=== PATIENT | male | born 1985 | race Caucasian/White ===

== ENCOUNTER 2021-02-25 19:19 | Inpatient (IN) | payer OTHER, SELFPAY ==
--- NOTE | ~2021-02-25 | XR_ITS ---
EXAMINATION: XR ABDOMEN KUB CLINICAL INDICATION: Abdominal pain COMPARISON: None TECHNIQUE: AP view of the abdomen and pelvis. FINDINGS: The bowel gas pattern is normal without evidence of ileus or obstruction. The bones are unremarkable. At least a 4 tiny calcifications are noted arranged in a vertical chain, in the left mid to lower pelvis, which may represent phleboliths however possibility of ureteric calculus/calculi cannot be excluded. A tiny calcification is noted in the right lower pelvis. The visualized lung bases are unremarkable. XR/XR KUB IMPRESSION: No evidence of radiopaque renal calculi. A few tiny calcifications in the pelvis bilaterally, greater in number on the left compared to right may represent phleboliths however possibility of bariatric calculus/calculi cannot be completely excluded. Recommend clinical correlation and correlation with the urinalysis. If clinically deemed necessary CT stone study would be helpful for evaluation of the urinary tract calculi.
[2021-02-25 20:18] VITALS: BMI 25.4
[2021-02-25 20:56] VITALS: BP 103/72; PULSE 72; RESP 16; TEMP 36.5; O2SAT 98
--- NOTE | 2021-02-25 22:26 | PC.ADMIT ---
Pt is a 35 year old male who came to [facility] from [facility] ED presenting symptoms of psychosis with delusions, paranoia, AH/VH. Pt's mom called police when he told her that evil forces were coming to harm her. At arrival to [facility] pt had a BAL of 248. He disclosed that he has occasional cocaine use and daily marijuana use. No previous history of inpatient and no ALESSIA treatment. Pt on admission to was sedated and nodding in and out during questions. Received Haldol 5 mg and Ativan 2 mg PO before coming onto the unit. C/o chest pain related to I had a pizza crust stuck in my chest...and now I take Prilosec. Mentioned that he took Vraylar 20 mg previously. Pharmacy was closed to verify [facility] in [place], [place]. Calm, cooperative on the unit verbalized that he has no thoughts of harming himself or anyone. I just want to catch up on my sleep, I haven't been sleeping well. Per eval pt is living in a yurt in the [facility]. Denies AH/VH and substance use. Placed on 15 minute checks. CV signed.
[2021-02-26 07:00] VITALS: BP 108/69; PULSE 85; RESP 18; TEMP 36.5; O2SAT 97
[2021-02-26 08:12] LABS: MANUAL DIFF FLAG NO
[2021-02-26 08:16] LABS: Basophils Absolute Auto 0.1 X10*3/uL (0.0-0.2); Basophils Percent Auto 0.8 % (0-2); Eosinophils Absolute Auto 0.2 X10*3/uL (0.0-0.4); Eosinophils Percent Auto 3.1 % (0-4); Hematocrit 42.9 % (42-52); Hemoglobin 14.7 g/dl (14.0-18.0); Imm Gran Abs Auto 0.01 X10*3/uL (0.00-0.03); Imm Gran Pct Auto 0.1 % (0.0-0.4); Lymphocytes Absolute Auto 2.3 X10*3/uL (1.2-4.9); Lymphocytes Percent Auto 30.7 % (20-40); Mean Corpuscular HGB Conc 34.3 g/dl (31.0-36.0); Mean Corpuscular Volume 93.5 fL (80-98); Mean Platelet Volume 10.3 fL (9.4-12.4); Monocytes Absolute Auto 0.7 X10*3/uL (0.1-1.2); Monocytes Percent Auto 9.7 % (2-11); Neutrophils Absolute Auto 4.1 X10*3/uL (2.0-8.3); Neutrophils Percent Auto 55.6 % (45-73); Platelet Count 247 X10*3/uL (160-400); Red Blood Count 4.59 X10*6/uL (4.60-5.80); Red Cell Distribution Width 12.7 % (11.0-16.0); White Blood Count 7.4 X10*3/uL (4.8-10.8)
[2021-02-26 08:46] LABS: Alanine Aminotransferase 16 U/L (0-40); Albumin Level 4.3 g/dL (3.5-5.0); Alkaline Phosphatase 61 U/L (39-117); Anion Gap 12 (12-20); Aspartate Amino Transferase 16 U/L (5-37); Bilirubin Direct 0.2 mg/dL (0.0-0.5); Bilirubin Total 0.5 mg/dL (0.0-1.0); Blood Urea Nitrogen 15 mg/dL (9-16); Calcium 9.4 mg/dL (8.4-10.2); Carbon Dioxide 23 mmol/L (22-29); Chloride 108 mmol/L (96-108); Creatinine Clr Calc Pharmacy 97.2; Estimated Glomerular Filt Rate > 60; Glucose Fasting 95 mg/dL (60-99); Potassium 4.6 mmol/L (3.3-5.1); Sodium 138 mmol/L (135-145); Total Protein 6.3 g/dL (6.5-8.0)
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
[2021-02-26] MEDS: LORazepam 0.5 MG TABLET PO (11:57)
--- NOTE | 2021-02-26 12:02 | PC.NURSE ---
PT COMPLETED A 3 DAY NOTICE TODAY AND IT WILL BE UP ON Wednesday03/04/21
[2021-02-26] MEDS: Cariprazine HCl 1.5 MG CAPSULE PO (12:42)
--- NOTE | 2021-02-26 13:14 | PC.NURSE ---
PT PACING IN THE HALLWAYS, APPEARS TENSE AND GUARDED. WHEN PT WAS ASKED WHAT BROUGHT HIM IN HE RESPONDED SAYING, I HEARD THE THE POISH ANNA WAS LOOKING FOR ME AND I HEARD IT FROM THE VIDEO INTERN . PT WAS ASKED ABOUT VOICES AND HE STARED AT T/W AND SAID, DON'T YOU BELIEVE IN TELEPATHY, ITS MORE LIKE THAT , DON'T YOU BELIEVE. PT THEN BEGAN TALKING ABOUT ABIRIGIONS AND WALK A BOUTS . (LARGE NUMBER OF PEOPLE WALKING IN [place] TALKING TO GROUPS OF PEOPLE SOMEWHERE ELSE AND COMMUNICATING). PT HAD MUCH DIFFICULTY CONCENTRATING AND WAS PERPETRATING ON THE ANNA AND PEOPLE AFTER HIM.
[2021-02-26 17:40] VITALS: BP 116/66; PULSE 82; RESP 18; TEMP 36.7; O2SAT 96
[2021-02-27 06:00] VITALS: BP 112/76; PULSE 90; RESP 16; TEMP 36.4; O2SAT 98
[2021-02-27] MEDS: Cariprazine HCl 1.5 MG CAPSULE PO ×2 (09:00→16:45)
--- NOTE | 2021-02-27 09:12 | P.PNPSI_ITS ---
Subjective Subjective Date of Service: 02/27/21 Reason For Visit: Acute psychosis Interim History: Patient reports he feels a little better since getting back on Vraylar. He remains concerned about the neighbors at his apartment and reiterates concerns about the [place] [employer]afia, and over hearing people passing by in their cars making accusatory comments (global technical writer previously thought pt was in his car, hearing pedestrians). He says what if this is really true? I mean what if this is really true? [place] we do something? That said he also wants the Vraylar to help tone down the part of his mind that are exaggerating these voices. He asks however if increasing the Vraylar would make him more vulnerable as in he would be less able to hear [auditory hallucinations] voices and be unaware of threats, however patient accepted that the medication would help him be more in touch with reality, what was real versus not and agreed to increase to 3 mg. Of note, patient reports he has not really heard AH since admission and has only heard the word ?outlaw ?1 time. The patient reports that he seems to have worsening auditory hallucinations during the times that he goes without sleep which most recently, was this past week. He says AH are still around even when not in the hypomanic state but to a much lesser degree (of note, patient does not consider these to be hallucinations and global technical writer is paraphrasing). . Patient is concerned about court date for pandemic unemployment assistance. casino gaming worker helped him arrange for access to court hearing tomorrow while on the unit. 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 Patient has already delayed this court date once so that he can have more time to collect the documents however he has not done so up until his admission. He has no transportation and no plan for getting documents and If he were to leave today he not be able to collect them Mental Status Exam Mental Status Exam Narrative: Pt is alert and oriented; behavior is cooperative, friendly; patient dressed in casual attire with adequate hygiene; mood is described as good and affect congruent; eye contact appropriate; Speech is normal rate, volume and prosody and not pressured; no psychomotor agitation/retardation present; thought process is organized, linear, logical and goal directed. Thought content is delusional threat posed to his brother by neighbors; also on court date on 02/28; content is pertinent to relevant topics but includes paranoid and delusional ideations; denies any SI/HI. AH have diminished. Patients insight and judgment are impaired. However, while he does not think he has delusions or hallucinations he agrees that sometimes the mind can exaggerate things and it can be difficult to distinguish between the two the real vs imagined). Diagnostics Vital Signs (24Hr): Vital Signs - 24 hr 02/26/21 17:40 02/27/21 06:00 Temperature 98.1 F 97.6 F Pulse Rate 82 90 Respiratory Rate 18 16 Blood Pressure 116/66 112/76 Pulse Oximetry 96 98 Body Mass Index 25.4 Labs Results: 02/26/21 07:49 02/26/21 07:49 Labs: Laboratory Results - last 48 hr 02/26/21 02/26/21 07:49 07:49 WBC 7.4 RBC 4.59 L Hgb 14.7 Hct 42.9 MCV 93.5 MCH 32.0 MCHC 34.3 RDW 12.7 Plt Count 247 MPV 10.3 Immature Gran % (Auto) 0.1 Neut % (Auto) 55.6 Lymph % (Auto) 30.7 [place] % (Auto) 9.7 Eos % (Auto) 3.1 Baso % (Auto) 0.8 Lymph # (Auto) 2.3 [place] # (Auto) 0.7 Eos # (Auto) 0.2 Baso # (Auto) 0.1 Abs Immat Gran (auto) 0.01 Absolute Neuts (auto) 4.1 Absolute Nucleated RBC 0.000 Nucleated RBC % (auto) 0.0 Sodium 138 Potassium 4.6 Chloride 108 Carbon Dioxide 23 Anion Gap 12 BUN 15 Creatinine 1.05 Estim Creat Clear Calc 97.2 Estimated GFR > 60 Fasting Glucose 95 Calcium 9.4 Total Bilirubin 0.5 Direct Bilirubin 0.2 AST 16 ALT 16 Alkaline Phosphatase 61 Total Protein 6.3 L Albumin 4.3 Medications Medications Current Medications Generic Name Dose Route Start Last Admin Trade Name Freq PRN Reason Stop Dose Admin Acetaminophen 650 mg 02/25/21 20:59 Acetaminophen 325 Mg Tablet PO Q6H PRN Headache/Pain Mild Scale (1-3) Al Hydroxide/Mg Hydroxide 30 ml 02/25/21 20:59 Magnesium Hydrox/Alum Hydrox 30 Ml Oral.Susp PO Q6H PRN Heartburn/Nausea Cariprazine 1.5 mg 02/26/21 11:34 02/27/21 09:00 Cariprazine Hcl 1.5 Mg Capsule PO 1.5 mg DAILY SANDIP Administration Diphenhydramine HCl 50 mg 02/25/21 20:59 Diphenhydramine Hcl 25 Mg Tablet PO Q4H PRN agitation Haloperidol 5 mg 02/25/21 20:59 Haloperidol 5 Mg Tablet PO Q4H PRN agitation Hydroxyzine HCl 25 mg 02/25/21 20:59 Hydroxyzine Hcl 25 Mg Tablet PO TID PRN Anxiety Lorazepam 2 mg 02/25/21 20:59 Lorazepam 1 Mg Tablet PO Q4H PRN agitation Magnesium Hydroxide 30 ml 02/25/21 20:59 Milk Of Magnesia 30 Ml Oral.Susp PO DAILY PRN Constipation Nicotine 21 mg 02/25/21 20:59 Nicotine 21 Mg Patch.Td24 TRANSDERMA DAILY PRN smoking cessation Nicotine Polacrilex 4 mg 02/25/21 20:59 Nicotine Polacrilex 2 Mg Gum BUCCAL Q2H PRN Nicotine Cravings Trazodone HCl 50 mg 02/25/21 20:59 Trazodone Hcl 50 Mg Tablet PO BEDTIME PRN Insomnia Allergies Allergies Allergy/AdvReac Type Severity Reaction Status Date / Time aspirin Allergy unsure Unverified 02/25/21 20:38 Assessment & Plan Assessment & Plan (1) Schizoaffective disorder, bipolar type: Status: Acute Code(s): F25.0 - Schizoaffective disorder, bipolar type (2) PTSD (post-traumatic stress disorder): Status: Acute Code(s): F43.10 - Post-traumatic stress disorder, unspecified Assessment and Plan: IMPRESSION: Patient is a 35-year-old male with history of psychotic symptoms presents to the ED after his mother called 911 and the face of patient expressing paranoid delusional thinking. Patient reports history of auditory hallucinations with brief periods hypomanic states. Patient meets criteria for schizoaffective disorder bipolar type however will make this diagnosis provisional since right of his meeting patient for the 1st time and there are some clarifications needed in his history. Patient reports history being on both lithium and Depakote making bipolar disorder a rule out. Patient endorses PTSD symptoms, but does not want to talk about trauma, some of which occurred during incarceration. He smokes cannabis regularly, but seems to report that it lowers his psychotic symptoms; otherwise he denies substance abuse. Patient denies any history of SI or HI. Although he lacks insight, thinking his paranoid delusions and AH are based in reality he would like antipsychotic medication because he feels it he lps him be more calm and less anxious. Patient signed a CV but then immediately signed a 3 day notice and is worried about missing a court date to receive [employer] funds. Patient refused release of information to talk with his mother and brother at this time Admitting DX: Schizoaffective disorder, bipolar type, provisional diagnosis Rule out bipolar disorder; r/o schizophrenia PTSD, chronic Current treatment decisions: Restarted patient on Vraylar 1.5 mg. Pt agreed to increase to 3mg and to move to nighttime incase it makes him tired. PLAN: PATIENT SIGNED CV PATIENT THEN SIGNED 3 DAY NOTICE Increased Vraylar 3 mg Will seek collateral from Maranda Davis, patient's prescriber Greater than 50% of the session was spent on counseling and/or coordination of care Reason for contiued inpatient stay Substantial Risk for: med/psych decompensation
[2021-02-27] MEDS: hydrOXYzine HCL 50 MG TABLET PO (10:38)
[2021-02-27 16:47] VITALS: BP 124/83; PULSE 87; TEMP 36.9
[2021-02-28 06:00] VITALS: BP 121/84; PULSE 79; RESP 16; TEMP 36.6; O2SAT 98
--- NOTE | 2021-02-28 09:07 | P.PNPSI_ITS ---
Subjective Subjective Date of Service: 02/28/21 Reason For Visit: Acute psychosis Subjective Notes: 3 Day Interim History: pt feeling better; denies any AH but remains concerned about paranoid delusions that his brother is in danger at his apartment. Pt however does continue to agree that perhaps his mind is exaggerating what he thinks he overheard (neighbors plotting to harm his brother) and agrees to increase Vryalar to 3mg. He signed a 3 day notice but says over the weekend, he'll consider staying longer. Patient said court went well enough today and that he has more time to collect paperwork. He feels relieved. Medication Compliance: Yes Side effects from medications: No Attending Groups: No Mental Status Exam Mental Status Exam Narrative: Pt is alert and oriented; behavior is cooperative, friendly and calm; patient is not in distress; dressed in casual attire wearing t-shirt and pants with adequate hygiene; mood is described as good and affect congruent; eye contact appropriate; Speech is normal rate, volume and prosody and not pressured; no psychomotor agitation/retardation present; thought process is organized, linear, logical and goal directed. Thought content is on continuing treatment and court issues; otherwise, pertinent to relevant topics; still delusional and paranoid ideations; denies any SI/HI. There is no evidence of perceptual disturbance and patient denies any AH since admission. Patients insight and judgment appears impaired. Diagnostics Vital Signs (24Hr): Vital Signs - 24 hr 02/27/21 16:47 02/28/21 06:00 Temperature 98.4 F 97.8 F Pulse Rate 87 79 Respiratory Rate 16 Blood Pressure 124/83 121/84 Pulse Oximetry 98 Body Mass Index 25.4 Labs Results: 02/26/21 07:49 03/02/21 16:01 Medications Medications Current Medications Generic Name Dose Route Start Last Admin Trade Name Freq PRN Reason Stop Dose Admin Acetaminophen 650 mg 02/25/21 20:59 Acetaminophen 325 Mg Tablet PO Q6H PRN Headache/Pain Mild Scale (1-3) Al Hydroxide/Mg Hydroxide 30 ml 02/25/21 20:59 Magnesium Hydrox/Alum Hydrox 30 Ml Oral.Susp PO Q6H PRN Heartburn/Nausea Cariprazine 3 mg 02/28/21 21:00 Cariprazine Hcl 3 Mg Capsule PO BEDTIME SANDIP Diphenhydramine HCl 50 mg 02/25/21 20:59 Diphenhydramine Hcl 25 Mg Tablet PO Q4H PRN agitation Haloperidol 5 mg 02/25/21 20:59 Haloperidol 5 Mg Tablet PO Q4H PRN agitation Hydroxyzine HCl 25 mg 02/25/21 20:59 Hydroxyzine Hcl 25 Mg Tablet PO TID PRN Anxiety Hydroxyzine HCl 50 mg 02/27/21 10:30 02/27/21 10:38 Hydroxyzine Hcl 50 Mg Tablet PO 50 mg Q6H PRN Administration Anxiety Lorazepam 2 mg 02/25/21 20:59 Lorazepam 1 Mg Tablet PO Q4H PRN agitation Magnesium Hydroxide 30 ml 02/25/21 20:59 Milk Of Magnesia 30 Ml Oral.Susp PO DAILY PRN Constipation Nicotine 21 mg 02/25/21 20:59 Nicotine 21 Mg Patch.Td24 TRANSDERMA DAILY PRN smoking cessation Nicotine Polacrilex 4 mg 02/25/21 20:59 Nicotine Polacrilex 2 Mg Gum BUCCAL Q2H PRN Nicotine Cravings Trazodone HCl 50 mg 02/25/21 20:59 Trazodone Hcl 50 Mg Tablet PO BEDTIME PRN Insomnia Allergies Allergies Allergy/AdvReac Type Severity Reaction Status Date / Time aspirin Allergy unsure Unverified 02/25/21 20:38 Assessment & Plan Assessment & Plan (1) Schizoaffective disorder, bipolar type: Status: Chronic Code(s): F25.0 - Schizoaffective disorder, bipolar type (2) PTSD (post-traumatic stress disorder): Status: Chronic Code(s): F43.10 - Post-traumatic stress disorder, unspecified Assessment and Plan: IMPRESSION: Patient is a 35-year-old male with history of psychotic symptoms presents to the ED after his mother called 911 and the face of patient expressing paranoid delusional thinking. Patient reports history of auditory hallucinations with brief periods hypomanic states. Patient meets criteria for schizoaffective disorder bipolar type however will make this diagnosis provisional since right of his meeting patient for the 1st time and there are some clarifications needed in his history. Patient reports history being on both lithium and Depakote making bipolar disorder a rule out. Patient endorses PTSD symptoms, but does not want to talk about trauma, some of which occurred during incarceration. He smokes cannabis regularly, but seems to report that it lowers his psychotic symptoms; otherwise he denies substance abuse. Patient denies any history of SI or HI. Although he lacks insight, thinking his paranoid delusions and AH are based in reality he would like antipsychotic medication because he feels it helps him be more calm and less anxious. Patient signed a CV but then rachid mcmanusy signed a 3 day notice and is worried about missing a court date to receive [employer] funds. Patient refused release of information to talk with his mother and brother at this time Admitting DX: Schizoaffective disorder, bipolar type, provisional diagnosis Rule out bipolar disorder; r/o schizophrenia PTSD, chronic Current treatment decisions: Restarted patient on Vraylar 1.5 mg. Pt agreed to increase to 3mg and to move to nighttime incase it makes him tired. PLAN: PATIENT SIGNED CV PATIENT THEN SIGNED 3 DAY NOTICE Increased Vraylar 3 mg Will seek collateral from Maranda Davis, patient's prescriber Greater than 50% of the session was spent on counseling and/or coordination of care Reason for contiued inpatient stay Substantial Risk for: rapid decompensation
[2021-02-28 10:00] VITALS: BP 135/75; PULSE 69; TEMP 35.9; O2SAT 97
[2021-02-28 17:30] VITALS: BP 116/83; PULSE 80; TEMP 36.9
[2021-02-28] MEDS: Cariprazine HCl 3 MG CAPSULE PO (20:17)
[2021-03-01 06:00] VITALS: BP 135/75; PULSE 75; RESP 16; TEMP 36.2; O2SAT 97
[2021-03-01] MEDS: Magnesium Hydrox/Alum Hydrox 30 ML ORAL.SUSP PO ×2 (13:21→20:20)
[2021-03-01 19:30] VITALS: BP 136/76; PULSE 75; TEMP 36.4
[2021-03-01] MEDS: Cariprazine HCl 3 MG CAPSULE PO (20:20)
[2021-03-02 05:00] VITALS: BP 143/63; PULSE 75; RESP 18; TEMP 36.4; O2SAT 97
--- NOTE | 2021-03-02 08:25 | P.PNPSI_ITS ---
Subjective Subjective Date of Service: 03/01/21 Reason For Visit: Acute psychosis Interim History: The patient had been psychotic but able to control himself, he took his medications as prescribed, denied side effects. Later, he complained of nausea and vomiting. MOM was increased. Medication Compliance: Yes Side effects from medications: No Attending Groups: Intermittent Mental Status Exam Mental Status Exam Patient Appearance: Unkempt Patient Orientation: Person, Place, Time and Situation Level of Consciousness: Awake Patient Behavior: Cooperative Mood Description: Calm Affect Description: Constricted Patient Cognition Impaired: No Ability to Follow Directions: Good Speech Pattern: Clear Hallucinations: None Thought Process: Goal Oriented Thought Content: positive for Preoccupation Judgement: Fair Diagnostics Vital Signs (24Hr): Vital Signs - 24 hr 03/01/21 19:30 03/02/21 05:00 Temperature 97.5 F 97.6 F Pulse Rate 75 75 Respiratory Rate 18 Blood Pressure 136/76 143/63 H Pulse Oximetry 97 Body Mass Index 25.4 Labs Results: 02/26/21 07:49 02/26/21 07:49 Medications Medications Current Medications Generic Name Dose Route Start Last Admin Trade Name Freq PRN Reason Stop Dose Admin Acetaminophen 650 mg 02/25/21 20:59 Acetaminophen 325 Mg Tablet PO Q6H PRN Headache/Pain Mild Scale (1-3) Al Hydroxide/Mg Hydroxide 30 ml 02/25/21 20:59 03/01/21 20:20 Magnesium Hydrox/Alum Hydrox 30 Ml Oral.Susp PO 30 ml Q6H PRN Administration Heartburn/Nausea Cariprazine 3 mg 02/28/21 21:00 03/01/21 20:20 Cariprazine Hcl 3 Mg Capsule PO 3 mg BEDTIME SANDIP Administration Diphenhydramine HCl 50 mg 02/25/21 20:59 Diphenhydramine Hcl 25 Mg Tablet PO Q4H PRN agitation Haloperidol 5 mg 02/25/21 20:59 Haloperidol 5 Mg Tablet PO Q4H PRN agitation Hydroxyzine HCl 25 mg 02/25/21 20:59 Hydroxyzine Hcl 25 Mg Tablet PO TID PRN Anxiety Hydroxyzine HCl 50 mg 02/27/21 10:30 02/27/21 10:38 Hydroxyzine Hcl 50 Mg Tablet PO 50 mg Q6H PRN Administration Anxiety Lorazepam 2 mg 02/25/21 20:59 Lorazepam 1 Mg Tablet PO Q4H PRN agitation Magnesium Hydroxide 30 ml 03/01/21 13:10 Milk Of Magnesia 30 Ml Oral.Susp PO TID PRN Dyspepsia Nicotine 21 mg 02/25/21 20:59 Nicotine 21 Mg Patch.Td24 TRANSDERMA DAILY PRN smoking cessation Nicotine Polacrilex 4 mg 02/25/21 20:59 Nicotine Polacrilex 2 Mg Gum BUCCAL Q2H PRN Nicotine Cravings Trazodone HCl 50 mg 02/25/21 20:59 Trazodone Hcl 50 Mg Tablet PO BEDTIME PRN Insomnia Allergies Allergies Allergy/AdvReac Type Severity Reaction Status Date / Time aspirin Allergy unsure Unverified 02/25/21 20:38 Assessment & Plan Assessment & Plan (1) Schizoaffective disorder, bipolar type: Status: Acute Code(s): F25.0 - Schizoaffective disorder, bipolar type (2) PTSD (post-traumatic stress disorder): Status: Acute Code(s): F43.10 - Post-traumatic stress disorder, unspecified Assessment and Plan: IMPRESSION: Patient is a 35-year-old male with history of psychotic symptoms presents to the ED after his mother called 911 and the face of patient expressing paranoid delusional thinking. Patient reports history of auditory hallucinations with brief periods hypomanic states. Patient meets criteria for schizoaffective disorder bipolar type however will make this diagnosis provisional since right of his meeting patient for the 1st time and there are some clarifications needed in his history. Patient reports history being on both lithium and Depakote making bipolar disorder a rule out. Patient endorses PTSD symptoms, but does no t want to talk about trauma, some of which occurred during incarceration. He smokes cannabis regularly, but seems to report that it lowers his psychotic symptoms; otherwise he denies substance abuse. Patient denies any history of SI or HI. Although he lacks insight, thinking his paranoid delusions and AH are based in reality he would like antipsychotic medication because he feels it helps him be more calm and less anxious. Patient signed a CV but then immediately signed a 3 day notice and is worried about missing a court date to receive [employer] unemployment funds. Patient refused release of information to talk with his mother and brother at this time Admitting DX: Schizoaffective disorder, bipolar type, provisional diagnosis Rule out bipolar disorder; r/o schizophrenia PTSD, chronic Current treatment decisions: Restarted patient on Vraylar 1.5 mg. Pt agreed to increase to 3mg and to move to nighttime incase it makes him tired. PLAN: PATIENT SIGNED CV PATIENT THEN SIGNED 3 DAY NOTICE Increased Vraylar 3 mg Will seek collateral from Maranda Davis, patient's prescriber Greater than 50% of the session was spent on counseling and/or coordination of care Reason for contiued inpatient stay Substantial Risk for: inability to function, rapid decompensation and med/psych decompensation
--- NOTE | 2021-03-02 08:27 | HO.PSYCHPN ---
Subjective Subjective Date of Service: 03/02/21 Reason For Visit: Acute psychosis Interim History: The patient had nausea again, it seems that he has this problem for several months. He was seen in the unit, isolative but compliant with treatment. He denied AH at this moment Medication Compliance: Yes Side effects from medications: No Attending Groups: No Mental Status Exam Mental Status Exam Patient Appearance: Well Grooomed Patient Orientation: Person, Place, Time and Situation Level of Consciousness: Awake and Appropriate Patient Behavior: Cooperative Mood Description: Calm Affect Description: Constricted Patient Cognition Impaired: No Ability to Follow Directions: Good Speech Pattern: Clear Hallucinations: None Delusions: Not Present Thought Process: Goal Oriented Thought Content: positive for Circumstantial Judgement: Fair Diagnostics Vital Signs (24Hr): Vital Signs - 24 hr 03/01/21 19:30 03/02/21 05:00 Temperature 97.5 F 97.6 F Pulse Rate 75 75 Respiratory Rate 18 Blood Pressure 136/76 143/63 H Pulse Oximetry 97 Body Mass Index 25.4 Labs Results: 02/26/21 07:49 02/26/21 07:49 Medications Medications Current Medications Generic Name Dose Route Start Last Admin Trade Name Freq PRN Reason Stop Dose Admin Acetaminophen 650 mg 02/25/21 20:59 Acetaminophen 325 Mg Tablet PO Q6H PRN Headache/Pain Mild Scale (1-3) Al Hydroxide/Mg Hydroxide 30 ml 02/25/21 20:59 03/01/21 20:20 Magnesium Hydrox/Alum Hydrox 30 Ml Oral.Susp PO 30 ml Q6H PRN Administration Heartburn/Nausea Cariprazine 3 mg 02/28/21 21:00 03/01/21 20:20 Cariprazine Hcl 3 Mg Capsule PO 3 mg BEDTIME SANDIP Administration Diphenhydramine HCl 50 mg 02/25/21 20:59 Diphenhydramine Hcl 25 Mg Tablet PO Q4H PRN agitation Haloperidol 5 mg 02/25/21 20:59 Haloperidol 5 Mg Tablet PO Q4H PRN agitation Hydroxyzine HCl 25 mg 02/25/21 20:59 Hydroxyzine Hcl 25 Mg Tablet PO TID PRN Anxiety Hydroxyzine HCl 50 mg 02/27/21 10:30 02/27/21 10:38 Hydroxyzine Hcl 50 Mg Tablet PO 50 mg Q6H PRN Administration Anxiety Lorazepam 2 mg 02/25/21 20:59 Lorazepam 1 Mg Tablet PO Q4H PRN agitation Magnesium Hydroxide 30 ml 03/01/21 13:10 Milk Of Magnesia 30 Ml Oral.Susp PO TID PRN Dyspepsia Nicotine 21 mg 02/25/21 20:59 Nicotine 21 Mg Patch.Td24 TRANSDERMA DAILY PRN smoking cessation Nicotine Polacrilex 4 mg 02/25/21 20:59 Nicotine Polacrilex 2 Mg Gum BUCCAL Q2H PRN Nicotine Cravings Trazodone HCl 50 mg 02/25/21 20:59 Trazodone Hcl 50 Mg Tablet PO BEDTIME PRN Insomnia Allergies Allergies Allergy/AdvReac Type Severity Reaction Status Date / Time aspirin Allergy unsure Unverified 02/25/21 20:38 Assessment & Plan Assessment & Plan (1) Schizoaffective disorder, bipolar type: Status: Acute Code(s): F25.0 - Schizoaffective disorder, bipolar type (2) PTSD (post-traumatic stress disorder): Status: Acute Code(s): F43.10 - Post-traumatic stress disorder, unspecified Assessment and Plan: Adult male with a history of psychosis and mood lability, admitted after his mother called emergency services due to decompensation. Currently, compliant with the treatment. Plan: Keep Vraylar 3 mg Greater than 50% of the session was spent on counseling and/or coordination of care Reason for contiued inpatient stay Substantial Risk for: inability to function, rapid decompensation and med/psych decompensation
[2021-03-02] MEDS: Milk of Magnesia 30 ML ORAL.SUSP PO (09:18)
--- NOTE | 2021-03-02 15:00 | PM.IMCN ---
History of Present Illness Data of Consult Service Date: 03/02/21 Requesting physician: Huey Tijerina Primary Care Provider: Unknown Physician HPI Reason for consult: Abdominal pain 35 year old man admitted to for psychiatric care. He reports abdominal pain, nausea and vomiting that has been ongoing over the last 6 months. Has had episodes where he changes psychotropic medication and develops nausea and vomiting and also episodes where he is trying to have a bowel movement and develops nausea and vomiting. He reported a diffuse abdominal pain prior to vomiting. He reported a good appetite, and is highly active outside as he is homeless living in a tent. He smokes marijuana on a regular basis. he was recently restarted on a psychotropic medication which can also cause nausea and vomiting and he reported that he was diagnosed with GERD as a child and took a PPI for a short time but stopped. He reported right upper quadrant pain with palpation but during the exam did not elicit pain response when palpated. No fever noted. Labs pending. Review of Systems Review of Systems: Denies any recent fever chills or decrease in appetite respiratory denies chest pain cardiovascular is adjustment of any PND or edema gastrointestinal see HPI genitourinary denies any dysuria frequency or hematuria musculoskeletal denies any joint pain or swelling neuropsych denies any weakness or seizures all other systems reviewed are negative [facility] Medical History (Updated 03/02/21 @ 15:01 by Kerrie Fragoso NP) GERD (gastroesophageal reflux disease) PTSD (post-traumatic stress disorder) Schizoaffective disorder, bipolar type Social History Household Members: Unknown / Unable to assess Housing: Unknown / Unable to assess Do you presently have visiting nurse or other home services: No Unable to assess alcohol history related to: Unable to respond Cigarette Packs Per Day: 1 Cigarettes Per Day: 20.0 Years Smoked: 7 Smoked in Last 30 Days: Yes Patient Interested in Nicotine Replacement: No Patient Given Instructions on How to Stop Smoking: Yes Date Education Initiated: 02/25/21 Second Hand Smoke Exposure: Yes Use of substances other than those prescribed or required for medical reasons: Refusing to respond Currently Displaying Signs/Symptoms of Drug Intoxication Withdrawal: No Other Past Substance Use Problem:: per eval pt occasional cocaine use , daily marijuana Advance Directives: No Advance Directives Information Provided: No Do you have thoughts of harming others: None Do you have a plan to hurt others: No Plan Recently lost weight without trying: Unsure Nutrition Risks: No Nutritional Risk Poor oral hygiene: No service: No Sexual orientation: Straight/Heterosexual Meds Allergies Allergy/AdvReac Type Severity Reaction Status Date / Time aspirin Allergy unsure Unverified 02/25/21 20:38 Active Medications: Current Medications Generic Name Dose Route Start Last Admin Trade Name Freq PRN Reason Stop Dose Admin Acetaminophen 650 mg 02/25/21 20:59 Acetaminophen 325 Mg Tablet PO Q6H PRN Headache/Pain Mild Scale (1-3) Al Hydroxide/Mg Hydroxide 30 ml 02/25/21 20:59 03/01/21 20:20 Magnesium Hydrox/Alum Hydrox 30 Ml Oral.Susp PO 30 ml Q6H PRN Administration Heartburn/Nausea Cariprazine 3 mg 02/28/21 21:00 03/01/21 20:20 Cariprazine Hcl 3 Mg Capsule PO 3 mg BEDTIME SANDIP Administration Diphenhydramine HCl 50 mg 02/25/21 20:59 Diphenhydramine Hcl 25 Mg Tablet PO Q4H PRN agitation Haloperidol 5 mg 02/25/21 20:59 Haloperidol 5 Mg Tablet PO Q4H PRN agitation Hydroxyzine HCl 25 mg 02/25/21 20:59 Hydroxyzine Hcl 25 Mg Tablet PO TID PRN Anxiety Hydroxyzine HCl 50 mg 02/27/21 10:30 02/27/21 10:38 Hydroxyzine Hcl 50 Mg Tablet PO 50 mg Q6H PRN Administration Anxiety Lorazepam 2 mg 02/25/21 20:59 Lorazepam 1 Mg Tablet PO Q4H PRN agitation Magnesium Hydroxide 30 ml 03/01/21 13:10 03/02/21 09:18 Milk Of Magnesia 30 Ml Oral.Susp PO 30 ml TID PRN Administration Dyspepsia Nicotine 21 mg 02/25/21 20:59 Nicotine 21 Mg Patch.Td24 TRANSDERMA DAILY PRN smoking cessation Nicotine Polacrilex 4 mg 02/25/21 20:59 Nicotine Polacrilex 2 Mg Gum BUCCAL Q2H PRN Nicotine Cravings Ondansetron HCl 8 mg 03/02/21 10:21 Ondansetron Odt 8 Mg Tab.Rapdis TRANSLINGU Q8H PRN Nausea Trazodone HCl 50 mg 02/25/21 20:59 Trazodone Hcl 50 Mg Tablet PO BEDTIME PRN Insomnia Physical Exam Vital Signs and Narrative: Vital Signs: Last Vital Signs Temp 97.6 F 03/02/21 05:00 Pulse 75 03/02/21 05:00 Resp 18 03/02/21 05:00 BP 143/63 H 03/02/21 05:00 Pulse Ox 97 03/02/21 05:00 Body Mass Index 25.4 Appearing in no acute distress head is normocephalic atraumatic eyes pupils are PERRLA sclera is anicteric mouth throat mucous membranes are intact and moist neck is supple no lymphadenopathy, no JVD noted lung sounds are clear to auscultation heart regular rate rhythm, clear S1, S2 positive bowel sounds, abdomen is soft, nontender neuro patient is alert x3, no focal deficits Results Labs CBC and Chem 7: 02/26/21 07:49 02/26/21 07:49 Assessment and Plan (1) PTSD (post-traumatic stress disorder): Status: Acute (2) Schizoaffective disorder, bipolar type: Status: Acute 35 year old man admitted to with complaints of abdominal pain that has been ongoing for at least 6 months. Multiple differentials including medication related, marijuana cyclical vomiting, GERD/gastritis, constipation Abdominal pain. Wide differential. No acute symptoms during interview -Add PPI -Continue SL zofran -BMP, LFT, Lactid acid -KUB -GI consult, may need scope at some point Psychiatric -as per psych team
[2021-03-02 16:28] LABS: Lactic Acid 1.1 mmol/L (0.5-2.0)
[2021-03-02 16:32] LABS: Alanine Aminotransferase 17 U/L (0-40); Albumin Level 4.7 g/dL (3.5-5.0); Alkaline Phosphatase 63 U/L (39-117); Aspartate Amino Transferase 16 U/L (5-37); Bilirubin Direct < 0.2 mg/dL (0.0-0.5); Bilirubin Total 0.5 mg/dL (0.0-1.0); Total Protein 6.8 g/dL (6.5-8.0)
[2021-03-02 16:40] VITALS: BP 121/77; PULSE 64; TEMP 36.5
[2021-03-02 16:48] LABS: Anion Gap 13 (12-20); Blood Urea Nitrogen 13 mg/dL (9-16); Calcium 9.6 mg/dL (8.4-10.2); Carbon Dioxide 28 mmol/L (22-29); Chloride 104 mmol/L (96-108); Creatinine Clr Calc Pharmacy 107.4; Estimated Glomerular Filt Rate > 60; Glucose Random 93 mg/dL (60-115); Potassium 3.9 mmol/L (3.3-5.1); Sodium 141 mmol/L (135-145)
[2021-03-02] MEDS: Cariprazine HCl 3 MG CAPSULE PO (20:57)
[2021-03-02] MEDS: hydrOXYzine HCL 50 MG TABLET PO (20:58)
[2021-03-03 06:50] VITALS: BP 123/94; PULSE 60; TEMP 36.1
[2021-03-03] MEDS: Omeprazole 20 MG CAPSULE.DR PO (06:54)
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
--- NOTE | 2021-03-03 09:13 | PM.EVENT ---
Event Note Date of Service: 03/03/21 Event Note: Patient declined Abdominal CT scan for work up for CT stone study and phleboliths. Will dc scan. Rest of management as per psychiatric team.
[2021-03-03 10:23] LABS: Glucose Urine UA NEG (NEG); Leukocyte Esterase Urine NEG (NEG); Nitrite Urine NEG (NEG); Urine Blood NEG (NEG); Urine Ketones NEG (NEG); Urine Protein NEG (NEG-TRACE)
[2021-03-03 10:24] LABS: Appearance Urine CLEAR; Color Urine YELLOW
[2021-03-03] MEDS: Milk of Magnesia 30 ML ORAL.SUSP PO (12:16)
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
[2021-03-03] MEDS: Magnesium Citrate 300 ML SOLUTION PO (18:26)
[2021-03-03 19:35] VITALS: BP 128/77; PULSE 95; TEMP 36.3
[2021-03-03] MEDS: hydrOXYzine HCL 50 MG TABLET PO (21:48)
[2021-03-03] MEDS: Cariprazine HCl 3 MG CAPSULE PO (21:48)
[2021-03-04] MEDS: Omeprazole 20 MG CAPSULE.DR PO (06:18)
[2021-03-04 09:24] VITALS: BP 130/91; PULSE 53; RESP 18; TEMP 36.5; O2SAT 100
--- NOTE | 2021-03-04 09:42 | P.PNPSI_ITS ---
Subjective Subjective Date of Service: 03/04/21 Reason For Visit: Acute psychosis Diagnostics Vital Signs (24Hr): Vital Signs - 24 hr 03/03/21 19:35 03/04/21 09:24 Temperature 97.3 F 97.7 F Pulse Rate 95 53 Respiratory Rate 18 Blood Pressure 128/77 130/91 H Pulse Oximetry 100 Body Mass Index 25.4 Labs Results: 02/26/21 07:49 03/02/21 16:01 Labs: Laboratory Results - last 48 hr 03/02/21 03/02/21 03/02/21 16:01 16:01 16:01 Sodium Cancelled 141 Potassium Cancelled 3.9 Chloride Cancelled 104 Carbon Dioxide Cancelled 28 Anion Gap Cancelled 13 BUN Cancelled 13 Creatinine Cancelled 0.95 Estim Creat Clear Calc Cancelled 107.4 Estimated GFR Cancelled > 60 Random Glucose Cancelled 93 Lactic Acid 1.1 Calcium Cancelled 9.6 Total Bilirubin 0.5 Direct Bilirubin < 0.2 AST 16 ALT 17 Alkaline Phosphatase 63 Total Protein 6.8 Albumin 4.7 Urine Color Urine Appearance Urine pH Ur Specific [place] Urine Protein Urine Glucose (UA) Urine Ketones Urine Blood Urine Nitrite Ur Leukocyte Esterase 03/03/21 09:48 Sodium Potassium Chloride Carbon Dioxide Anion Gap BUN Creatinine Estim Creat Clear Calc Estimated GFR Random Glucose Lactic Acid Calcium Total Bilirubin Direct Bilirubin AST ALT Alkaline Phosphatase Total Protein Albumin Urine Color YELLOW Urine Appearance CLEAR Urine pH 7.0 Ur Specific [place] 1.010 Urine Protein NEG Urine Glucose (UA) NEG Urine Ketones NEG Urine Blood NEG Urine Nitrite NEG Ur Leukocyte Esterase NEG Imaging Radiology Impressions: ITS Impressions KUB X-Ray 03/02/21 15:47 IMPRESSION: No evidence of radiopaque renal calculi. A few tiny calcifications in the pelvis bilaterally, greater in number on the left compared to right may represent phleboliths however possibility of bariatric calculus/calculi cannot be completely excluded. Recommend clinical correlation and correlation with the urinalysis. If clinically deemed necessary CT stone study would be helpful for evaluation of the urinary tract calculi. Medications Medications Current Medications Generic Name Dose Route Start Last Admin Trade Name Freq PRN Reason Stop Dose Admin Acetaminophen 650 mg 02/25/21 20:59 Acetaminophen 325 Mg Tablet PO Q6H PRN Headache/Pain Mild Scale (1-3) Al Hydroxide/Mg Hydroxide 30 ml 02/25/21 20:59 03/01/21 20:20 Magnesium Hydrox/Alum Hydrox 30 Ml Oral.Susp PO 30 ml Q6H PRN Administration Heartburn/Nausea Cariprazine 3 mg 02/28/21 21:00 03/03/21 21:48 Cariprazine Hcl 3 Mg Capsule PO 3 mg BEDTIME SANDIP Administration Diphenhydramine HCl 50 mg 02/25/21 20:59 Diphenhydramine Hcl 25 Mg Tablet PO Q4H PRN agitation Docusate Sodium 100 mg 03/03/21 10:19 Docusate Sodium 100 Mg Capsule PO BEDTIME PRN Constipation Docusate Sodium 100 mg 03/03/21 15:59 Docusate Sodium 100 Mg Capsule PO BEDTIME PRN Constipation Haloperidol 5 mg 02/25/21 20:59 Haloperidol 5 Mg Tablet PO Q4H PRN agitation Hydroxyzine HCl 25 mg 02/25/21 20:59 Hydroxyzine Hcl 25 Mg Tablet PO TID PRN Anxiety Hydroxyzine HCl 50 mg 02/27/21 10:30 03/03/21 21:48 Hydroxyzine Hcl 50 Mg Tablet PO 50 mg Q6H PRN Administration Anxiety Magnesium Hydroxide 30 ml 03/01/21 13:10 03/03/21 12:16 Milk Of Magnesia 30 Ml Oral.Susp PO 30 ml TID PRN Administration Dyspepsia Nicotine 21 mg 02/25/21 20:59 Nicotine 21 Mg Patch.Td24 TRANSDERMA DAILY PRN smoking cessation Nicotine Polacrilex 4 mg 02/25/21 20:59 Nicotine Polacrilex 2 Mg Gum BUCCAL Q2H PRN Nicotine Cravings Omeprazole 20 mg 03/03/21 06:30 03/04/21 06:18 Omeprazole 20 Mg Capsule.Dr PO 20 mg DAILY@0630 SANDIP Administration Ondansetron HCl 8 mg 03/02/21 10:21 03/04/21 07:49 Ondansetron Odt 8 Mg Tab.Rapdis TRANSLINGU 8 mg Q8H PRN Administration Nausea Trazodone HCl 50 mg 02/25/21 20:59 Trazodone Hcl 50 Mg Tablet PO BEDTIME PRN Insomnia Allergies Allergies Allergy/AdvReac Type Severity Reaction Status Date / Time aspirin Allergy unsure Unverified 02/25/21 20:38 Assessment & Plan Assessment & Plan (1) PTSD (post-traumatic stress disorder): Status: Acute Code(s): F43.10 - Post-traumatic stress disorder, unspecified (2) Schizoaffective disorder, bipolar type: Status: Acute Code(s): F25.0 - Schizoaffective disorder, bipolar type Assessment and Plan: 35 year old man admitted to [facility] with complaints of abdominal pain that has been ongoing for at least 6 months. Multiple differentials including medication related, marijuana cyclical vomiting, GERD/gastritis, constipation Abdominal pain. Wide differential. No acute symptoms during interview -Add PPI -Continue SL zofran -BMP, LFT, Lactid acid -KUB -GI consult, may need scope at some point Psychiatric -as per psych team, continue with Vraylar. Greater than 50% of the session was spent on counseling and/or coordination of care
--- NOTE | 2021-03-04 12:15 | PM.EVENT ---
Event Note Date of Service: 03/04/21 Event Note: GI Consult full note dictated No abdominal pain today Longstanding history of reflux symptoms Agree with omeprazole 20 mg daily Advise patient to f/u for elective outpatient EGD given symptoms
[2021-03-04] MEDS: Milk of Magnesia 30 ML ORAL.SUSP PO (12:50)
--- NOTE | 2021-03-04 13:07 | P.DS_ITS ---
DS: Providers Provider Date of Service: 03/04/21 Date of admission: 02/25/21 19:19 Date of discharge: 03/04/21 Primary care physician: Unknown Physician Attending physician on admission: Albin Garcia Consults: 03/02/21 15:13 Consult to Gastroenterology Routine Consulting Provider: Andrew Garcia Reason for consultation: abd pain Has provider been notified: No Attending physician on discharge: Albin Garcia DS: Diagnosis Discharge Diagnosis (1) PTSD (post-traumatic stress disorder): Status: Chronic (2) Schizoaffective disorder, bipolar type: Status: Chronic (3) GERD (gastroesophageal reflux disease): Status: Acute DS: Medications Discharge Medications Home Medications: Vrylar 3mg daily omeprazole 20mg daily Discharge Plan Discharge Patient Disposition: Home, Self-Care Discharge Diagnosis: Schizophrenia, paranoid type Referrals: Clara Castillo (therapy intake) [Other] - 03/06/21 4:00 pm (Telehealth appointment, she will call you) Gisela Hart (psychiatrist) [Other] - 03/07/21 2:30 pm (Telehealth appointment, she will call you) Maranda Davis MD [Physician] - 1 Week ( SAID HE CAN COME IN A WALK -IN .) Andrew Garcia [Physician] - 1 Week ('S OFFICE WILL CALL PATIENT WITH F/U APPOINTMENT AFTER DISCHARGE.) Discharge Medications: New omeprazole 20 mg Capsule,Delayed Release(Dr/Ec) 20 mg PO DAILY@0630 30 Days Qty: 30 RF: 1 Vraylar 3 mg Capsule 3 mg PO DAILY 30 Days Qty: 30 RF: 1 Discharge Orders: Discharge Order (Routine); Ordered 03/04/21 Ordered By: Albin Garcia Diet: regular diet Activity on Discharge: As tolerated Stand Alone Forms: Patient Portal Discharge page, Community Support Care Plan Goals: Maintain mood and safe behaviors Take medications as prescribed Continue to pursue sobriety Practice coping skills Continue with outpatient providers and reach out to them as needed Health Concerns: Auditory Hallucinations Stomach upset Plan of Treatment: Follow up with your PCP and Dr. Garcia (GI) regarding stomach upset Meet with psychiatric provider and therapist Take medications as prescribed Assessment: Risk assessment at time of discharge: Patient has been observed closely by nursing and unit staff throughout admission; patient has not engaged in any behaviors that suggest dangerousness to self or others and has demonstrated appropriate behaviors and impulse control. Patient was interviewed prior to discharge and found to be fully oriented and without any SI or HI. Patient has insight and demonstrates good judgment in terms of wanting to pursue treatment. Patient is not in imminent risk of harm to self or others and has a safety plan that includes presenting to the closest ER or calling 911 if feeling unsafe. Discharge Date/Time: 03/04/21 13:50 Mental Status Exam Mental Status Exam Narrative: Pt is alert and oriented; behavior is cooperative, friendly and calm; patient is not in distress; dressed in casual attire wearing t-shirt and pants, neatly groomed with good adequate hygiene; mood is described as good and affect congruent; eye contact appropriate; Speech is normal rate, volume and prosody and not pressured; no psychomotor agitation/retardation present; thought process is organized, linear, logical and goal directed. Thought content is on continuing treatment and digesting diagnosis and is pertinent to relevant topics; some mild delusional and paranoid ideations that he is currently challenging; denies any SI/HI. There is no evidence of perceptual disturbance and patient denies any AH since admission. Patients insight significantly improved and judgment appears intact. Data Data Completed and Pending Completed studies during hospitalization [Text1]: 02/26/21 02/26/21 03/02/21 07:49 07:49 16:01 WBC 7.4 RBC 4.59 L Hgb 14.7 Hct 42.9 MCV 93.5 MCH 32.0 MCHC 34.3 RDW 12.7 Plt Count 247 MPV 10.3 Immature Gran % (Auto) 0.1 Neut % (Auto) 55.6 Lymph % (Auto) 30.7 [place] % (Auto) 9.7 Eos % (Auto) 3.1 Baso % (Auto) 0.8 Lymph # (Auto) 2.3 [place] # (Auto) 0.7 Eos # (Auto) 0.2 Baso # (Auto) 0.1 Abs Immat Gran (auto) 0.01 Absolute Neuts (auto) 4.1 Absolute Nucleated RBC 0.000 Nucleated RBC % (auto) 0.0 Sodium 138 Cancelled Potassium 4.6 Cancelled Chloride 108 Cancelled Carbon Dioxide 23 Cancelled Anion Gap 12 Cancelled BUN 15 Cancelled Creatinine 1.05 Cancelled Estim Creat Clear Calc 97.2 Cancelled Estimated GFR > 60 Cancelled Random Glucose Cancelled Fasting Glucose 95 Lactic Acid Calcium 9.4 Cancelled Total Bilirubin 0.5 Direct Bilirubin 0.2 AST 16 ALT 16 Alkaline Phosphatase 61 Total Protein 6.3 L Albumin 4.3 Urine Color Urine Appearance Urine pH Ur Specific [place] Urine Protein Urine Glucose (UA) Urine Ketones Urine Blood Urine Nitrite Ur Leukocyte Esterase 03/02/21 03/02/21 03/03/21 16:01 16:01 09:48 WBC RBC Hgb Hct MCV MCH MCHC RDW Plt Count MPV Immature Gran % (Auto) Neut % (Auto) Lymph % (Auto) [place] % (Auto) Eos % (Auto) Baso % (Auto) Lymph # (Auto) [place] # (Auto) Eos # (Auto) Baso # (Auto) Abs Immat Gran (auto) Absolute Neuts (auto) Absolute Nucleated RBC Nucleated RBC % (auto) Sodium 141 Potassium 3.9 Chloride 104 Carbon Dioxide 28 Anion Gap 13 BUN 13 Creatinine 0.95 Estim Creat Clear Calc 107.4 Estimated GFR > 60 Random Glucose 93 Fasting Glucose Lactic Acid 1.1 Calcium 9.6 Total Bilirubin 0.5 Direct Bilirubin < 0.2 AST 16 ALT 17 Alkaline Phosphatase 63 Total Protein 6.8 Albumin 4.7 Urine Color YELLOW Urine Appearance CLEAR Urine pH 7.0 Ur Specific [place] 1.010 Urine Protein NEG Urine Glucose (UA) NEG Urine Ketones NEG Urine Blood NEG Urine Nitrite NEG Ur Leukocyte Esterase NEG Imaging Diagnostic Imaging Impressions KUB X-Ray 03/02/21 15:47 IMPRESSION: No evidence of radiopaque renal calculi. A few tiny calcifications in the pelvis bilaterally, greater in number on the left compared to right may represent phleboliths however possibility of bariatric calculus/calculi cannot be completely excluded. Recommend clinical correlation and correlation with the urinalysis. If clinically deemed necessary CT stone study would be helpful for evaluation of the urinary tract calculi. DS: Summary Hospital Course Hospital Course: Patient is a 35-year-old male with history of psychotic symptoms presents to the ED after his mother called 911 and the face of patient expressing paranoid delusional thinking. Pt was admitted on a cv status for diagnosis of schizoaffective disorder and ptsd. Throughout admission, patient was without manic symptoms. On admission, patient continued to express concerns about paranoid delusions and felt that auditory hallucinations were real and that his brother was being monitored and at risk for harm; patient denied depression or any SI or HI. Patient had been very recently started on Vraylar as an outpatient but it only taking it once or twice. This medication was continued and increased to 3 mg to good effect. Over the weekend patient remained calm, cooperative, in a good mood, and began to entertain the idea that his mind might have been playing tricks on him; he continued to deny any auditory hallucinations since admission. Patient continued to deny any suicidal or homicidal ideation and demonstrated appropriate behaviors and impulse control on the unit. Regarding his history, patient reported history of auditory hallucinations with brief periods hypomanic states and thus diagnosed with schizoaffective disorder. By the end of his admission, patient agreed that he has a psychiatric psychotic disorder and said that people for quite a while suggesting he might be schizophrenic. He agreed it was most likely his mind was playing tricks on and said nothing yet has happened to my brother and it probab ly would have had had this been real. Patient had insight to say he realizes that ?I know what i heard... What I heard might not be what was actually said. Patient reported that he felt ready for discharge and had signed a 3 day notice which was due on day of discharge. He was in a good mood, denied any SI or HI and AH had remained resolved. Patient felt good about medication increase and plan to continue with treatment. He expressed gratitude for his stay and felt that he would be able to repair things with his family. Patient said he has been thinking of going to a ?hearing voices group in [facility] and plans to attend upon discharge. Patient is not in imminent risk of harm to self or others and does not rise to the level of involuntary commitment. His request for discharge is honored. Senior Java Architect discussed risks/side effects of medication Vrylar; patient communicated understanding of benefits, risks and side-effects of medications and wants to continue with regimen. Patient agrees that current doses seem appropriate and denies medication side-effects. Patient agrees to reach out to outpatient provider with any medications concerns. Time spent discussing smoking cessation with patient: 3 to 10 minutes Status at Discharge Cognitive/behavioral status at discharge: Risk assessment at time of discharge: Patient has been observed closely by nursing and unit staff throughout admission; patient has not engaged in any behaviors that suggest dangerousness to self or others and has demonstrated appropriate behaviors and impulse control. Patient was interviewed prior to discharge and found to be fully oriented and without any SI or HI. Patient has insight and demonstrates good judgment in terms of wanting to pursue treatment. Patient is not in imminent risk of harm to self or others and has a safety plan that includes presenting to the closest ER or calling 911 if feeling unsafe. Functional status at discharge: independent ambulation Overall status at discharge: patient is progressing back to baseline (or at baseline) Time Spent with Patient Time attestation: Total time spent providing and/or coordinating discharge services: Time spent: Greater than 30 minutes
--- NOTE | 2021-03-04 13:17 | PC.NURSE ---
Pt is visible and anticipating discharge. Pt continues to perseverate on moving his bowels and was given PRN MOM, results pending. Pt continues with some disturbed thought processes but states he feels much better and is ready to leave, denies SI/HI. Pt has been medication compliant, attends to his own adls, Vitals are stable and has been eating/drinking well. Pt denies cravings for drugs or alcohol. Pt discharged with his belongings.
--- NOTE | 2021-03-05 00:10 | CONS_ITS ---
DATE OF SERVICE: 03/04/2021 REFERRING PHYSICIAN: Kerrie Fragoso NP REASON FOR CONSULTATION: Abdominal pain and gastroesophageal reflux disease. HISTORY OF PRESENT ILLNESS: The patient is a pleasant 35-year-old man, who was admitted to the inpatient psychiatric unit earlier last week. During his hospitalization, he had some reported nausea and vomiting, which he indicates has been a problem for him in the past, especially when he has psychiatric medication changes. He describes a longstanding history of gastroesophageal reflux symptoms including substernal burning, precipitated by typical foods including spicy foods and fatty foods since age 15. He has been treated in the past with [id number] medications and did take Nexium for a period of 6 months, which controlled the symptoms quite well. He stopped taking this because of a concern regarding osteopenia. Currently, he has no dysphagia. He has had some vomiting with flecks of reddish material that he thought may be possibly blood. There has been no massive hematemesis or melena. He has been tolerating a diet. PAST MEDICAL HISTORY: 1. Gastroesophageal reflux disease. 2. PTSD. 3. Schizoaffective disorder, bipolar type. CURRENT MEDICATIONS: Current medication list is reviewed in the chart. ALLERGIES: ASPIRIN. FAMILY HISTORY: This is reviewed with the patient. He has no primary family relatives with upper GI malignancy. SOCIAL HISTORY: He has not used tobacco for 6 months, but does use marijuana on a regular basis. He states alcohol use is intermittent, but has been heavy in the past. REVIEW OF SYSTEMS: SKIN: No pruritus. HEENT: Negative. CARDIOPULMONARY: No shortness of breath or chest pain. GASTROINTESTINAL: As above. GENITOURINARY: Negative. NEUROPSYCHIATRIC: Negative. PHYSICAL EXAMINATION: GENERAL: Shows a pleasant male, in no acute distress. VITAL SIGNS: Reviewed in the electronic medical record and are stable. SKIN: Anicteric. HEENT: Shows no scleral icterus. NECK: Without lymphadenopathy or thyromegaly. LUNGS: Clear. HEART: Shows a regular rate and rhythm. S1, S2. No murmur. ABDOMEN: Soft without focal masses or tenderness. Bowel sounds are present. No organomegaly is noted. EXTREMITIES: Without edema. LABORATORY DATA: Reviewed. This includes a fairly normal CBC and chemistries showing a normal liver profile and abdominal x-ray showed no significant bowel abnormalities. IMPRESSION: Abdominal pain with gastroesophageal reflux disease. Currently at this time he is having no abdominal pain and is tolerating a diet. He does have an impressive history for longstanding gastroesophageal reflux disease. I discussed this with him as well as treatment of reflux disease including diet, lifestyle modifications and weight management. I recommended he continue omeprazole for 8-12 weeks and arrange outpatient upper endoscopy for further evaluation and to rule out Corral's esophagus given the longstanding nature of his symptoms. I also discussed other possible causes for abdominal pain including use of marijuana on a regular basis with cyclical vomiting as well as side effects of psychiatric and other medications. Thanks for asking me to see him. I will follow him in the hospital with you. MD DEANDRA Curtis/ELIGIO / [id number]
== END 2021-03-04 13:50 | disposition home or self-care (01) | DRG 750 ==
PROVIDERS: Nurse Practitioner Acute Care; Admitting Provider Psychiatry & Neurology Psychiatry; Visit Provider Psychiatry & Neurology Psychiatry
DX: F25.0 Schizoaffective disorder, bipolar type (principal); F17.210 Nicotine dependence, cigarettes, uncomplicated; F43.10 Post-traumatic stress disorder, unspecified; K21.9 Gastro-esophageal reflux disease without esophagitis; Z71.6 Tobacco abuse counseling; Z88.6 Allergy status to analgesic agent; Z79.899 Other long term (current) drug therapy
CPT/HCPCS: 36415; 74018; 80048; 80053; 80076; 81003; 83605; 85025